=== PATIENT | female | born 1990 | race Caucasian/White ===

== ENCOUNTER 2021-12-25 12:24 | Inpatient (IN) ==
[2021-12-25] MEDS ORDERED: SODIUM CHLORIDE 0.9% 1000ML 1,000 ML IV ONE (12:32)
[2021-12-25] MEDS ORDERED: LORazepam 2 MG/1 ML VIAL IV STA (12:32)
[2021-12-25] MEDS ORDERED: levETIRAcetam 1,500 MG in 0.9 % SODIUM CHLORIDE 100 ML IV STA (12:36)
--- NOTE | 2021-12-25 12:39 | Emergency Department Note ---
Impression & Plan Seizure, Depression ED Provider Note NAME: ALEXIS VARGAS AGE: 31 SEX: F : 1990 ARRIVES VIA: Ambulance INFORMANT: Patient, EMS ED PROVIDER(S): Mike Palomino DO CHIEF COMPLAINT: seizure activity HPI: Patient is a 31-year-old female that presents the ER for possible seizure. She has been admitted since earlier this month for suicidal ideations to the [facility]. Today she had 130 to 60-second seizure at the [facility] and then another which was about 20 seconds per EMS. They note no change in heart rate per EMS. History is limited secondary to mentation. There is no report of any seizure activity previously. History is limited secondary to mentation. ROS: History was limited secondary to mentation PAST MEDICAL HISTORY:See Below PAST SURGICAL HISTORY:See Below FAMILY HISTORY:See Below SOCIAL HISTORY:See Below HOME MEDICATIONS:See Below ALLERGIES:See Below VITALS:See Below PHYSICAL EXAMINATION: GENERAL: Lying in bed, disheveled, staring off EYE EXAM: normal conjunctiva. PERRL and EOM's intact. OROPHARYNX: no exudate, no erythema, lips, buccal mucosa, and tongue normal and mucous membranes are moist NECK: supple, no nuchal rigidity, no adenopathy, non-tender LUNGS: Clear to auscultation. Normal chest wall mechanics HEART: no murmurs, S1 normal and S2 normal ABDOMEN: abdomen soft, non-tender, normo-active bowel sounds, no masses, no rebound or guarding. SKIN: no rashes and no bruising UPPER EXTREMITIES: upper extremities are grossly normal. LOWER EXTREMITIES: No pitting edema. NEURO EXAM: Awake staring off not following commands MEDICAL DECISION MAKING: Patient is a 31-year-old female who presents ER for 2 seizures prior to arrival. IV was established blood was obtained. Labs show no significant leukocytosis or anemia. BMP with LFTs bilirubin and lipase was unremarkable. Troponin was negative. UA was contaminated. Covid was negative. was negative. CT head was negative. Chest x-ray unremarkable. She had a brief seizure when I walked into the room. She did have hurt her eyes when this occurred but it was tonic-clonic. She did not bite her tongue. There is no loss of bowel or bladder. Uncertain if this is a true seizure or not. Remaining seizure that did occur in the ER lasted for about 20 seconds and I was unable to witness this. She was given Ativan and Keppra and treated as if these were true seizures. Patient and mom were updated bedside. She returned back to baseline and notes that she is feeling better but is confused why she is here. Discussed with the hospitalist for further evaluation. Patient was given 2 mg of Ativan while here as well as a 1.5 g of Keppra for 2 separate seizures. Triage Nursing notes reviewed. Limited review of prior medical records performed Vital Signs: reviewed and remarkable for no significant abnormalities Differential diagnosis: Differential diagnosis includes etiologies such as infection, hypoglycemia, electrolyte abnormalities, cardiac sources, intracerebral event, trauma, toxicologic, neurologic, as well as others were entertained. ER treatment provided: See below Diagnostics interpreted by me: ECG: Sinus rhythm rate 83 Normal axis No PVCs QTC 465 Cardiac Monitoring: An order was placed for continuous cardiac monitoring. The monitor shows a rate of 70 with sinus rhythm. Laboratory studies: As stated above and show below. Imaging studies: Portable AP upright 1 view of the chest was unremarkable CT head was negative Consultation(s): none Critical Care: None Past Med/Surg History Social History Smoking Status: Current every day smoker Tobacco Type: Cigarettes Feels Safe at Home: Yes Allergies Allergies Allergy/AdvReac Type Severity Reaction Status Date / Time No Known Allergies Allergy Unverified 12/25/21 13:59 Home Meds Home Medications Medication Instructions Recorded Confirmed acetaminophen 325 mg capsule 975 mg PO Q6H PRN 12/25/21 12/25/21 aluminum-magnesium hydroxide 200 30 ml PO Q4H PRN 12/25/21 12/25/21 mg-200 mg/5 mL oral suspension (MAG-AL) lorazepam 2 mg/mL injection 2 mg SUBLINGUAL UD PRN 12/25/21 12/25/21 solution magnesium hydroxide 2,400 mg/10 mL 30 ml PO UD PRN 12/25/21 12/25/21 oral suspension (Milk Of Magnesia Concentrated) melatonin 3 mg tablet 9 mg PO HS PRN 12/25/21 12/25/21 Results & Data (ED) Vital Signs Vital Signs - 24 hr 12/25/21 12:32 12/25/21 15:00 Temperature 37.3 C Temperature Source Oral Pulse Rate 104 H 71 Pulse Rate [Apical] 104 H Pulse Rate from SpO2 Sensor 67 Respiratory Rate 28 H 19 Respiratory Depth Normal Blood Pressure 124/76 106/59 L Blood Pressure [Right Arm] 124/76 Blood Pressure Mean 92 74 Blood Pressure Mean [Right Arm] 92 Pulse Oximetry 100 98 Oxygen Delivery Method Room Air Sepsis Recent Fever Within 48 Hours No Sepsis New/Unexplained Change in Mental Status N/A Sepsis Action Taken by Nursing No Action Required Laboratory Data Result diagrams: 12/25/21 12:31 12/25/21 12:31 Lab Results 12/25/21 12/25/21 12/25/21 Range/Units 12:31 12:31 12:31 WBC 8.48 (4.8-10.8) K/uL RBC 3.88 L (4.2-5.4) M/uL Hgb 12.0 (12.0-16.0) g/dL Hct 37.3 (37-47) % MCV 96.1 (80-100) fL MCH 30.9 (25-34) pg MCHC 32.2 (32-36) g/dL RDW Std Deviation 44.2 (36.4-46.3) fL RDW Coeff of Georges 12.6 (11.5-14.5) % Plt Count 263 (130-400) K/uL MPV 9.3 (7.4-10.4) fL Immature Gran % (Auto) 0.2 % Neut % (Auto) 63.8 % Lymph % (Auto) 27.5 % [place] % (Auto) 6.4 % Eos % (Auto) 1.5 % Baso % (Auto) 0.6 % Neut # (Auto) 5.41 (1.4-6.5) K/uL Lymph # (Auto) 2.33 (1.2-3.4) K/uL [place] # (Auto) 0.54 (0.11-0.59) K/uL Eos # (Auto) 0.13 (0-0.5) K/uL Baso # (Auto) 0.05 (0-0.2) K/uL Immature Gran # (Auto) 0.02 (0.00-0.02) K/uL Sodium 138 (136-145) mmol/L Potassium 4.8 (3.5-5.1) mmol/L Chloride 102 (98-107) mmol/L Carbon Dioxide 24 (21-32) mmol/L Anion Gap 12 H (3-11) BUN 17 (6-23) mg/dl Creatinine 0.77 (0.6-1.2) mg/dl Est Cr Clr Drug Dosing Not Reportable Est GFR ( Amer) 120.1 ml/min Est GFR (Non-Af Amer) 103.6 ml/min BUN/Creatinine Ratio 22.1 H (10-20) Glucose 79 (70-99(Fasting)) mg/dl Calcium 9.2 (8.5-10.1) mg/dl Total Bilirubin 0.4 (0.2-1.0) mg/dl AST 25 (13-39) U/L ALT 18 (7-52) U/L Alkaline Phosphatase 53 (34-104) U/L Troponin I < 0.03 (0-0.04) ng/ml Total Protein 6.8 (6.0-8.3) gm/dl Albumin 4.4 (3.4-5.0) gm/dl Globulin 2.4 L (2.5-4.0) gm/dl Albumin/Globulin Ratio 1.8 (0.9-2) Lipase 21 (11-82) U/L Prolactin 13.13 ng/ml Urine Color Urine Appearance (Clear) Urine pH (4.5-7.5) Ur Specific [place] (1.000-1.030) Urine Protein (Negative) Urine Glucose (UA) (Negative) Urine Ketones (Negative) Urine Blood (Negative) Urine Nitrite (Negative) Urine Bilirubin (Negative) Urine Urobilinogen (Negative) Ur Leukocyte Esterase (Negative) Urine WBC (Auto) (0-5) /hpf Urine RBC (Auto) (0-4) /hpf U Hyaline Cast (Auto) (0-5) /lpf U Epithel Cells (Auto) (0-5) /lpf Urine Bacteria (Auto) (Negative) POC Ur Test (NEG) SARS-CoV-2, RNA, NAAT (NEGATIVE) 12/25/21 12/25/21 12/25/21 Range/Units 13:33 14:34 14:57 WBC (4.8-10.8) K/uL RBC (4.2-5.4) M/uL Hgb (12.0-16.0) g/dL Hct (37-47) % MCV (80-100) fL MCH (25-34) pg MCHC (32-36) g/dL RDW Std Deviation (36.4-46.3) fL RDW Coeff of Georges (11.5-14.5) % Plt Count (130-400) K/uL MPV (7.4-10.4) fL Immature Gran % (Auto) % Neut % (Auto) % Lymph % (Auto) % [place] % (Auto) % Eos % (Auto) % Baso % (Auto) % Neut # (Auto) (1.4-6.5) K/uL Lymph # (Auto) (1.2-3.4) K/uL [place] # (Auto) (0.11-0.59) K/uL Eos # (Auto) (0-0.5) K/uL Baso # (Auto) (0-0.2) K/uL Immature Gran # (Auto) (0.00-0.02) K/uL Sodium (136-145) mmol/L Potassium (3.5-5.1) mmol/L Chloride (98-107) mmol/L Carbon Dioxide (21-32) mmol/L Anion Gap (3-11) BUN (6-23) mg/dl Creatinine (0.6-1.2) mg/dl Est Cr Clr Drug Dosing Est GFR ( Amer) ml/min Est GFR (Non-Af Amer) ml/min BUN/Creatinine Ratio (10-20) Glucose (70-99(Fasting)) mg/dl Calcium (8.5-10.1) mg/dl Total Bilirubin (0.2-1.0) mg/dl AST (13-39) U/L ALT (7-52) U/L Alkaline Phosphatase (34-104) U/L Troponin I (0-0.04) ng/ml Total Protein (6.0-8.3) gm/dl Albumin (3.4-5.0) gm/dl Globulin (2.5-4.0) gm/dl Albumin/Globulin Ratio (0.9-2) Lipase (11-82) U/L Prolactin ng/ml Urine Color Yellow Urine Appearance Clear (Clear) Urine pH 7.5 (4.5-7.5) Ur Specific [place] 1.015 (1.000-1.030) Urine Protein Negative (Negative) Urine Glucose (UA) Negative (Negative) Urine Ketones Negative (Negative) Urine Blood Negative (Negative) Urine Nitrite Negative (Negative) Urine Bilirubin Negative (Negative) Urine Urobilinogen Negative (Negative) Ur Leukocyte Esterase Trace H (Negative) Urine WBC (Auto) 5-10 H (0-5) /hpf Urine RBC (Auto) 0-4 (0-4) /hpf U Hyaline Cast (Auto) 0 (0-5) /lpf U Epithel Cells (Auto) >30 H (0-5) /lpf Urine Bacteria (Auto) 1+ H (Negative) POC Ur Test NEG (NEG) SARS-CoV-2, RNA, NAAT NEGATIVE (NEGATIVE) Administered Medications Discontinued Medications Sodium Chloride (Nss 1000ml) 1,000 mls @ 999 mls/hr IV .Q1H1M ONE Stop: 12/25/21 13:32 Last Infusion: 12/25/21 13:38 Dose: 0 mls/hr Documented by: [id number] Admin: 12/25/21 12:44 Dose: 999 mls/hr Documented by: [id number] Levetiracetam 1,500 mg/ Sodium (Chloride) 115 mls @ 440 mls/hr IV NOW STA Stop: 12/25/21 12:50 Last Infusion: 12/25/21 13:38 Dose: 0 mls/hr Documented by: [id number] Admin: 12/25/21 13:13 Dose: 440 mls/hr Documented by: [id number] Lorazepam (Lorazepam 2 Mg/1 Ml Vial) 2 mg IV NOW STA Stop: 12/25/21 12:33 Last Admin: 12/25/21 12:44 Dose: 2 mg Documented by: [id number] Imaging Data Radiologist's Impression: Head CT 12/25/21 12:32 CT head/brain wo con CLINICAL HISTORY: 31 years-old Female with seizure. Acute seizure like activity TECHNIQUE: Multiple axial CT images of the head were obtained without contrast. A dose lowering technique was utilized adhering to the principles of ALARA. CT DOSE: 537.48 mGy.cm COMPARISON: None. FINDINGS: No acute intracranial hemorrhage, midline shift, intracranial mass, hydrocephalus, territorial ischemia or abnormal extra-axial collection. Streak artifact from the patient's left-sided earring limits the study. The calvarium is intact. The paranasal sinuses, mastoid air cells, and middle ear cavities are clear. IMPRESSION: No acute intracranial abnormality. ACT 112: Negative or not required by law. The above report was generated using voice recognition software. It may contain grammatical, syntax or spelling errors. Electronically signed by: Jose Olivo M.D. 12/25/2021 3:02 PM Chest X-Ray 12/25/21 12:33 XR chest 1V portable HISTORY: 31 years-old Female ams . Acutely altered bowel status COMPARISON: None TECHNIQUE: AP view of the chest FINDINGS: There are 10 subcentimeter round radiodense foci projecting over the mid to left upper chest which are reportedly secondary to body jewelry. Surgical suture material projects over the lung apices. The cardiomediastinal and hilar silhouettes are within normal limits. No pneumothorax, pleural effusion, airspace consolidation or overt pulmonary edema. Bones of the chest appear grossly intact. IMPRESSION: No acute process. ACT 112: Negative or not required by law. The above report was generated using voice recognition software. It may contain grammatical, syntax or spelling errors. Electronically signed by: Jose Olivo M.D. 12/25/2021 1:16 PM Discharge Plan Visit Data Chief Complaint: Seizure ED Provider: Mike Palomino Discharge Problem: Seizure, Depression Patient Disposition: Admitted As Inpatient Discharge Instructions Interventions: ED Discharge Assessment Last Done: 12/25/21 17:36
[2021-12-25 12:56] LABS: Basophils # (auto) 0.05 K/uL (0-0.2); Basophils % (auto) 0.6 %; Eosinophils # (auto) 0.13 K/uL (0-0.5); Eosinophils % (auto) 1.5 %; Hematocrit (blood only) 37.3 % (37-47); Immature Granulocytes # (auto) 0.02 K/uL (0.00-0.02); Immature Granulocytes % (auto) 0.2 %; Lymphocytes # (auto) 2.33 K/uL (1.2-3.4); Lymphocytes % (auto) 27.5 %; Mean Corpuscular Hemoglobin 30.9 pg (25-34); Mean Corpuscular Hgb Conc 32.2 g/dL (32-36); Mean Corpuscular Volume 96.1 fL (80-100); Mean Platelet Volume 9.3 fL (7.4-10.4); Monocytes # (auto) 0.54 K/uL (0.11-0.59); Monocytes % (auto) 6.4 %; Neutrophils # (auto) 5.41 K/uL (1.4-6.5); Neutrophils % (auto) 63.8 %; Platelet Count 263 K/uL (130-400); RDW Coefficient of Variation 12.6 % (11.5-14.5); RDW Standard Deviation 44.2 fL (36.4-46.3); Red Blood Count 3.88 M/uL (4.2-5.4); White Blood Count 8.48 K/uL (4.8-10.8)
[2021-12-25 13:09] LABS: Alanine Aminotransferase 18 U/L (7-52); Albumin Globulin Ratio 1.8 (0.9-2); Albumin Level 4.4 gm/dl (3.4-5.0); Alkaline Phosphatase 53 U/L (34-104); Anion Gap 12 (3-11); Aspartate Aminotransferase 25 U/L (13-39); BUN Creatinine Ratio 22.1 (10-20); Bilirubin,Total 0.4 mg/dl (0.2-1.0); Blood Urea Nitrogen 17 mg/dl (6-23); Calcium 9.2 mg/dl (8.5-10.1); Carbon Dioxide 24 mmol/L (21-32); Chloride 102 mmol/L (98-107); Est GFR (African American) 120.1 ml/min; Est GFR (Non-African American) 103.6 ml/min; Globulin 2.4 gm/dl (2.5-4.0); Glucose 79 mg/dl (70-99(Fasting)); Lipase 21 U/L (11-82); Potassium 4.8 mmol/L (3.5-5.1); Sodium 138 mmol/L (136-145); Total Protein 6.8 gm/dl (6.0-8.3)
[2021-12-25 13:11] LABS: Troponin I < 0.03 ng/ml (0-0.04)
--- NOTE | 2021-12-25 13:18 | XRay Report ---
XR chest 1V portable HISTORY: 31 years-old Female ams . Acutely altered bowel status COMPARISON: None TECHNIQUE: AP view of the chest FINDINGS: There are 10 subcentimeter round radiodense foci projecting over the mid to left upper chest which ar e reportedly secondary to body jewelry. Surgical suture material projects over the lung apices. The c ardiomediastinal and hilar silhouettes are within normal limits. No pneumothorax, pleural effusion, a irspace consolidation or overt pulmonary edema. Bones of the chest appear grossly intact. IMPRESSION: No acute process. ACT 112: Negative or not required by law. The above report was generated using voice recognition software. It may contain grammatical, syntax o r spelling errors. Electronically signed by: Jose Olivo M.D. 12/25/2021 1:16 PM
--- NOTE | 2021-12-25 14:59 | Electrocardiogram Report ---
Test Reason : Blood Pressure : / mmHG Vent. Rate : 083 BPM Atrial Rate : 083 BPM P-R Int : 134 ms QRS Dur : 098 ms QT Int : 396 ms P-R-T Axes : 050 072 041 degrees QTc Int : 465 ms Normal sinus rhythm Low voltage QRS Incomplete right bundle branch block Borderline ECG No previous ECGs available Confirmed by Jose Garsia ([id number]) on 12/25/2021 2:58:32 PM Referred By: Confirmed By:Jose Garsia
--- NOTE | 2021-12-25 15:04 | CT Scan Report ---
CT head/brain wo con CLINICAL HISTORY: 31 years-old Female with seizure. Acute seizure like activity TECHNIQUE: Multiple axial CT images of the head were obtained without contrast. A dose lowering tech nique was utilized adhering to the principles of ALARA. CT DOSE: 537.48 mGy.cm COMPARISON: None. FINDINGS: No acute intracranial hemorrhage, midline shift, intracranial mass, hydrocephalus, territorial ischem ia or abnormal extra-axial collection. Streak artifact from the patient's left-sided earring limits t he study. The calvarium is intact. The paranasal sinuses, mastoid air cells, and middle ear cavities are clear . IMPRESSION: No acute intracranial abnormality. ACT 112: Negative or not required by law. The above report was generated using voice recognition software. It may contain grammatical, syntax o r spelling errors. Electronically signed by: Jose Olivo M.D. 12/25/2021 3:02 PM
[2021-12-25 15:12] LABS: Appearance Urine Clear (Clear); Bacteria Urine Automated 1+ (Negative); Bilirubin Urine Negative (Negative); Blood Urine Negative (Negative); Cast Urine Automated 0 /lpf (0-5); Color Urine Yellow; Epithelial Cell Urine Auto >30 /lpf (0-5); Glucose Urine UA Negative (Negative); Ketones Urine Negative (Negative); Leukocyte Esterase Urine Trace (Negative); Nitrite Urine Negative (Negative); Protein Urine Negative (Negative); RBC Urine Automated 0-4 /hpf (0-4); Specific Gravity Urine 1.015 (1.000-1.030); Urobilinogen Urine Negative (Negative); pH Urine 7.5 (4.5-7.5)
--- NOTE | 2021-12-25 15:19 | History & Physical Report ---
Date of Service December 25, 2021 Assessment & Plan (1) Seizure: Plan: Differential seizure versus pseudoseizure. Prolactin is drawn in the ER. Patient be be continued on Keppra at this time. We will get a neurology consult and EEG for the morning. Certainly significant emotional stressors could account for this. Reportedly for the patient's depression and suicide gesture she is currently on gabapentin 600 4 times daily and clonazepam 1 mg twice daily therefore breaking through with these 2 antiepileptic drugs would make it seem less likely. Neurology consultation (2) Depression: Plan: As mentioned above the patient has suicidal ideation but no suicidal gestures she is at the [facility] [place] on a 201 she will be on suicide precautions and a one-on-one while here she will be continued on her gabapentin but converted from 600 4 times daily to 800 3 times daily we will continue her clonazepam 1 twice a day we will give her an additional dose of Librium here in the emergency department x1 will have as needed Ativan for both breakthrough anxiety and breakthrough seizures. (3) Contusion of wrist, right: Plan: Patient is contusion of the right wrist she can approximate her hand she has good sensation there is an x-ray from the [facility] [place] without evidence of fractures. (4) DVT prophylaxis: Plan: DVT preventions early ambulation History of Present Illness Primary Care Provider: Psychiatrkimberlee Rubio 31-year-old female who presents from the [facility] [place] where she is therefore a suicide gesture who presents with concern for generalized seizure. Reportedly the patient had emotional escalation at the [facility] [place] when one of her friends had left. She reportedly had an episode of seizure-like activity there, an episode of seizure-like activity in EMS on route here. She had additional episode of generalized tonic-clonic movements here all which only lasted 30 seconds each or so. Mother is at the bedside reportedly has no history of seizure disorder. In the emergency department she was given lorazepam 2 and 1500 mg of Keppra. Urine tox is pending urine analysis is pending chest x-ray head CT and EKG are unremarkable Reportedly the patient is on gabapentin 600 4 times daily and clonazepam 1 mg twice daily while at the [facility] [place]. She is here for suicidal ideation but she did not have a suicidal gesture and she is here voluntarily on 201. Reportedly she had a bad day 1 day prior where increased panic attacks were occurring she had poor sleep overnight and then had an increasingly escalating emotional episode which led in lend itself to her having this event. She cannot recall the events she did not have any bruises with exception of a contusion to her forehead she not lose continence does state that her arms and legs feel weak from exertion Allergies Allergy/AdvReac Type Severity Reaction Status Date / Time No Known Allergies Allergy Unverified 12/25/21 13:59 Home Medications Medication Instructions Recorded Confirmed Type acetaminophen 325 mg capsule 975 mg PO Q6H PRN 12/25/21 12/25/21 History aluminum-magnesium hydroxide 200 30 ml PO Q4H PRN 12/25/21 12/25/21 History mg-200 mg/5 mL oral suspension (MAG-AL) lorazepam 2 mg/mL injection 2 mg SUBLINGUAL UD PRN 12/25/21 12/25/21 History solution magnesium hydroxide 2,400 mg/10 mL 30 ml PO UD PRN 12/25/21 12/25/21 History oral suspension (Milk Of Magnesia Concentrated) melatonin 3 mg tablet 9 mg PO HS PRN 12/25/21 12/25/21 History Past Med/Surg History Social History Smoking Status: Current every day smoker Tobacco Type: Cigarettes Feels Safe at Home: Yes Review of Systems Review of Systems: Mild distress and fatigue no headache, no visual changes no speech or swallowing issues no chest pain, pressure or palpitations no shortness of breath, cough or wheezes no abdominal pain, nausea or vomiting, diarrhea or constipation no dysuria, hematuria or frequency no focal joint pain or swelling no back pain, CVA tenderness or radicular pain Small contusion on the right forehead she also has contusion to her right arm she is old as there is a negative x-ray as an outpatient no focal signs of weakness or numbness or altered sensation Planes of anxiety and demonstrating tremulousness Physical Exam Physical Exam: The patient appeared well nourished and normally developed. Vital signs as documented. Head exam contusion on right forehead contusion to right arm arm was x-rayed Neck is without JVD, thyromegaly, or carotid bruits. Lungs are clear to auscultation, no focal loss of breath sounds Cardiac exam, Rhythm is regular.. No murmurs, rubs or gallops. Abdominal exam reveals normal bowel sounds, soft non tender, no masses Extremities are nonedematous and both pedal pulses are present Neurologic exam is alert and oriented, no focal loss of strength or sensation Skin is with bruises as mentioned Psychologically is with a transfer anxiety depression and suicidal ideation Results & Data Results & Data ([facility]) Vital Signs (Past 12 Hours) Vital Signs Temp Pulse Pulse Resp BP BP Pulse Ox 12/25/21 12:32 99.1 F 104 H 104 H 28 H 124/76 124/76 [address] 12/25/21 12:32 CT head/brain wo con CLINICAL HISTORY: 31 years-old Female with seizure. Acute seizure like activity TECHNIQUE: Multiple axial CT images of the head were obtained without contrast. A dose lowering technique was utilized adhering to the principles of ALARA. CT DOSE: 537.48 mGy.cm COMPARISON: None. FINDINGS: No acute intracranial hemorrhage, midline shift, intracranial mass, hydrocephalus, territorial ischemia or abnormal extra-axial collection. Streak artifact from the patient's left-sided earring limits the study. The calvarium is intact. The paranasal sinuses, mastoid air cells, and middle ear cavities are clear. IMPRESSION: No acute intracranial abnormality. ACT 112: Negative or not required by law. The above report was generated using voice recognition software. It may contain grammatical, syntax or spelling errors. Electronically signed by: Jose Olivo M.D. 12/25/2021 3:02 PM Chest X-Ray 12/25/21 12:33 XR chest 1V portable HISTORY: 31 years-old Female ams . Acutely altered bowel status COMPARISON: None TECHNIQUE: AP view of the chest FINDINGS: There are 10 subcentimeter round radiodense foci projecting over the mid to left upper chest which are reportedly secondary to body jewelry. Surgical suture material projects over the lung apices. The cardiomediastinal and hilar silhouettes are within normal limits. No pneumothorax, pleural effusion, airspace consolidation or overt pulmonary edema. Bones of the chest appear grossly intact. IMPRESSION: No acute process. ACT 112: Negative or not required by law. The above report was generated using voice recognition software. It may contain grammatical, syntax or spelling errors. Electronically signed by: Jose Olivo M.D. 12/25/2021 1:16 PM ECG Additional Comments: EKG shows normal sinus rhythm without acute ST or T wave changes PG Care Time/CCT Total # of Minutes Spent Total Time Spent with Patient: Total time spent is greater than 50% in coordination of care (as documented) at patient's floor/unit and/or counseling patient: Coding Level of Care Code 73937 Initial Inpt Care Lvl 3 Diagnoses Seizure R56.9 Depression F32.A DVT prophylaxis Z29.9 Contusion of wrist, right S60.211A
[2021-12-25] MEDS ORDERED: ONDANSETRON INJ 2 MG/ML 2 ML VIAL IV PRN (18:57)
[2021-12-25] MEDS ORDERED: ACETAMINOPHEN 325 MG TAB PO PRN (18:57)
[2021-12-25] MEDS ORDERED: MELATONIN 3 MG TAB PO PRN (18:57)
[2021-12-25] MEDS ORDERED: ALUMINUM/MAGNESIUM SUSP 30 ML UDC PO PRN (18:57)
[2021-12-25] MEDS ORDERED: chlordiazePOXIDE HCl 25 MG CAP PO ONE ×2 (18:57→22:30)
[2021-12-25] MEDS: LORazepam 2 MG/1 ML VIAL IV PRN (19:37)
[2021-12-25] MEDS: clonazePAM 1 MG TAB PO SCH (22:27)
[2021-12-25] MEDS: GABAPENTIN 800 MG TAB PO SCH (22:27)
[2021-12-25 22:30] LABS: Amphetamines+Metham, Urine Neg (Neg); Barbiturates, Urine Neg (Neg); Benzodiazepine, Urine Neg (Neg); Cocaine, Urine Neg (Neg); MDMA (Ecstacy), Urine Neg (Neg); Methadone, Urine Neg (Neg); Opiate, Urine Neg (Neg); Phencyclidine, Urine Neg (Neg)
[2021-12-26] MEDS: LORazepam 2 MG/1 ML VIAL IV PRN ×5 (05:00→21:35)
[2021-12-26 06:26] LABS: Hematocrit (blood only) 35.9 % (37-47); Mean Corpuscular Hemoglobin 30.8 pg (25-34); Mean Corpuscular Hgb Conc 33.4 g/dL (32-36); Mean Corpuscular Volume 92.1 fL (80-100); Mean Platelet Volume 8.9 fL (7.4-10.4); Platelet Count 247 K/uL (130-400); RDW Coefficient of Variation 12.5 % (11.5-14.5); RDW Standard Deviation 42.1 fL (36.4-46.3); White Blood Count 8.78 K/uL (4.8-10.8)
[2021-12-26 07:01] LABS: Anion Gap 6 (3-11); BUN Creatinine Ratio 26.1 (10-20); Blood Urea Nitrogen 12 mg/dl (6-23); Calcium 8.6 mg/dl (8.5-10.1); Carbon Dioxide 26 mmol/L (21-32); Chloride 105 mmol/L (98-107); Creatine Kinase 254 U/L (26-192); Creatinine Clr Calc Pharmacy 165.4 ml/min; Est GFR (African American) > 150.0 ml/min; Est GFR (Non-African American) 133.5 ml/min; Glucose 84 mg/dl (70-99(Fasting)); Potassium 3.8 mmol/L (3.5-5.1); Sodium 137 mmol/L (136-145)
--- NOTE | 2021-12-26 08:55 | Electroencephalogram ---
EEG Procedure Note Date of Service December 26, 2021 Start / End Times Start Time: 817 End Time: [address] Agosto History 31 oral with history of seizure-like activity Home Medication List Medication Instructions Recorded Confirmed Type acetaminophen 325 mg capsule 975 mg PO Q6H PRN 12/25/21 12/25/21 History aluminum-magnesium hydroxide 200 30 ml PO Q4H PRN 12/25/21 12/25/21 History mg-200 mg/5 mL oral suspension (MAG-AL) lorazepam 2 mg/mL injection 2 mg SUBLINGUAL UD PRN 12/25/21 12/25/21 History solution magnesium hydroxide 2,400 mg/10 mL 30 ml PO UD PRN 12/25/21 12/25/21 History oral suspension (Milk Of Magnesia Concentrated) melatonin 3 mg tablet 9 mg PO HS PRN 12/25/21 12/25/21 History Inpatient Medication List Clonazepam (Clonazepam 1 Mg Tab) 1 mg PO BID ALICIA Stop: 01/24/22 20:59 Last Admin: 12/25/21 22:27 Dose: 1 mg Documented by: [id number] Gabapentin (Gabapentin 800 Mg Tab) 800 mg PO TID ALICIA Stop: 01/24/22 20:59 Last Admin: 12/25/21 22:27 Dose: 800 mg Documented by: [id number] Lorazepam (Lorazepam 2 Mg/1 Ml Vial) 1 mg IV Q6H PRN PRN Reason: Agitation Stop: 01/24/22 18:56 Last Admin: 12/26/21 05:00 Dose: 1 mg Documented by: [id number] Lorazepam (Lorazepam 2 Mg/1 Ml Vial) 2 mg IV Q2H PRN PRN Reason: seizure Stop: 01/24/22 18:56 Last Admin: 12/25/21 19:37 Dose: 2 mg Documented by: [id number] Discontinued Medications Chlordiazepoxide HCl (Chlordiazepoxide Hcl 25 Mg Cap) 25 mg PO NOW ONE Stop: 12/25/21 22:31 Last Admin: 12/25/21 22:27 Dose: 25 mg Documented by: [id number] Sodium Chloride (Nss 1000ml) 1,000 mls @ 999 mls/hr IV .Q1H1M ONE Stop: 12/25/21 13:32 Last Infusion: 12/25/21 13:38 Dose: 0 mls/hr Documented by: [id number] Admin: 12/25/21 12:44 Dose: 999 mls/hr Documented by: [id number] Levetiracetam 1,500 mg/ Sodium (Chloride) 115 mls @ 440 mls/hr IV NOW STA Stop: 12/25/21 12:50 Last Infusion: 12/25/21 13:38 Dose: 0 mls/hr Documented by: [id number] Admin: 12/25/21 13:13 Dose: 440 mls/hr Documented by: [id number] Lorazepam (Lorazepam 2 Mg/1 Ml Vial) 2 mg IV NOW STA Stop: 12/25/21 12:33 Last Admin: 12/25/21 12:44 Dose: 2 mg Documented by: [id number] Description This is a 21 electrode EEG with a single channel dedicated to limited EKG. The electrodes were placed in accordance with the International 10-20 system. Interpretation The predominant background activity consists of a very well modulated 11 Hz activity, of up to 30 mV in amplitude,seen symmetrically distributed over the posterior head regions bilaterally. This activity attenuates nicely with eye- opening and other alerting procedures. Photic stimulation was performed and elicited no change in the background activity and no abnormal responses were seen. Hyperventilation was not performed. A minimal amount of muscle and movement artifact activity contaminated the rec ording and did not hinder interpretation to any significant degree. Throughout the waking portion of the recording, no focal abnormalities, abnormal slow activity, or potentially epileptogenic discharges are seen. The patient entered the drowsy state with no further activation. In summary, this EEG was normal during wakefulness and drowsiness. No focal abnormalities, potentially epileptogenic discharges, or abnormal slow activity was seen. Clinical Correlation The abscence of potentially epileptogenic activity does not exclude a seizure disorder, since interictally, EEGs can be normal. Clinical correlation is required. [facility] EEG Procedure Codes Indication for Procedure (1) Seizure-like activity: Neurology Neurology: 12186 EEG include record awake & drowsy
[2021-12-26] MEDS: clonazePAM 1 MG TAB PO SCH ×2 (09:09→20:25)
[2021-12-26] MEDS: GABAPENTIN 800 MG TAB PO SCH ×3 (09:09→20:25)
--- NOTE | 2021-12-26 10:44 | Neurology Consultation ---
Date of Consultation December 26, 2021 Assessment & Plan (1) Seizure-like activity: (2) Bipolar disorder with depression: (3) Panic disorder: this patient has a longstanding history of bipolar disorder and other issues as described above ( including panic disorder and depression ). She had the recent onset of seizure-like activity yesterday and has had several episodes yesterday, last evening, and this morning. Overall, I am strongly suspecting pseudoseizures but I cannot completely exclude real Generalized tonic-clonic seizures. EEG, in between spells, was unremarkable including no postictal or other slowing. Neurologic examination is normal with no focal neurologic signs, meningeal signs, or encephalopathy. I spoke to Dr. Cruz regarding her case and her psychiatric conditions. Recommendations: 1. MRI of the brain with and without contrast. 2. Discontinue all levetiracetam. 3. continue gabapentin 800 milligrams 3 times a day and clonazepam 1 milligram twice a day. 4. Initiate lamotrigine 25 milligrams twice a day ( we will do this for 1 week then increase to 50 milligrams twice a day ). lamotrigine can help bipolar disorder as well as me an excellent anticonvulsant. If this helps her condition we can taper off the gabapentin 5. obtain magnesium, TSH, and B12. 6. we may need to send her to an epilepsy monitoring unit if we cannot prove seizures versus pseudoseizures. 7. Consider formal psychiatry consult ( so Dr. cruz can evaluate the patient). Overall, I spent a total of 75 minutes with this case including review of records, direct evaluation the patient at bedside, and discussion of the case with the patient at bedside, RN at bedside and Dr. Cruz and Dr. Lopez including differential diagnosis and treatment options. History of Present Illness Reason for Consultation: Patient is a 31-year-old, who was asked to see at the request of Dr. Agosto, for neurologic consultation regarding seizures. Requesting Physician: Dr. Agosto. Attending Physician: Alejandro Lopez MD History of Present Illness This patient has a history of bipolar type 2 disorder diagnosed in 2009 along with OCD, ADHD, agoraphobia, and panic disorder (All diagnoses told to me by the patient). Apparently she has had a number of psychiatric medications over the years. The patient herself has no recollection of a history of seizures although once in 2007 or 2008 she was dancing on staging collapsed then having seizure-like activity. Her heart rate was decreased in her glucose was decreased. It was felt that she had a cardiovascular event and she never had any other spells or medications. The patient was admitted to the [facility] recently because of depression and suicidal ideation. Apparently the patient has been recently from her spouse and moved back to the [facility] to live with her parents from [place]. Apparently she was initiated on Effexor and sertraline as well as gabapentin and clonazepam. On December 25, in the morning, she started out with a panic attack triggered by the fact that a friend/ support person was being discharged from the [facility]. This panic attack lasted at least 15 minutes and was accompanied by hyperventilating, increased heart rate, shaking of her hands, and crying. She then went into 2 or 3 episodes of generalized tonic-clonic movement lasting anywhere from 20 is 60 seconds by a minute or 2. She did not regain consciousness in between and has no recall of the events. She did not have tongue biting or urinary incontinence. She was brought to the emergency room at 12:32 on December 25 with a temperature of 37.3, pulse of 104, respiratory rate 28, blood pressure 124/76 and O2 saturation 100 percent on room air. She was described as disheveled and staring off lying in bed with no real following commands. She did not have anything focal on neurologic exam. A prolactin was 13. She was given 1.5 grams of Keppra IV. In the evening Allergies Allergy/AdvReac Type Severity Reaction Status Date / Time azithromycin Allergy Mild hives,vomit Verified 12/26/21 10:51 ing Home Medications Medication Instructions Recorded Confirmed Type Albuterol Inhaler (VENTOLIN 2 puff INHALATION QID PRN #5 02/23/14 History INHALER) inhaler Control Pills 1 tab PO DAILY #0 tab 02/23/14 History DULOXETINE HCL (CYMBALTA) 60 mg PO DAILY #0 cap 02/23/14 History NAPROXEN 1 tab PO UD PRN #0 02/23/14 History ZOLPIDEM TARTRATE (AMBIEN) 5 mg PO HS PRN #0 tab 02/23/14 History acetaminophen 325 mg capsule 975 mg PO Q6H PRN 12/25/21 12/25/21 History aluminum-magnesium hydroxide 200 30 ml PO Q4H PRN 12/25/21 12/25/21 History mg-200 mg/5 mL oral suspension (MAG-AL) lorazepam 2 mg/mL injection 2 mg SUBLINGUAL UD PRN 12/25/21 12/25/21 History solution magnesium hydroxide 2,400 mg/10 mL 30 ml PO UD PRN 12/25/21 12/25/21 History oral suspension (Milk Of Magnesia Concentrated) melatonin 3 mg tablet 9 mg PO HS PRN 12/25/21 12/25/21 History Patient History Social History Smoking Status: Current every day smoker Tobacco Type: Cigarettes Cigarettes Per Day: <5; Second Hand Exposure: No; Hx Alcohol Use: Yes Hx Substance Use: Yes Preferred Language: Maori Communication Ability: Effective Mail Delivery Supervisor Required: No Beliefs That Will Affect Care: None Current Living Situation: Family Current Living Situation Comment: Lives with parents Feels Safe at Home: Yes Assistive Devices: None Review of Systems Constitutional: + fatigue; no fever and no weakness Eyes: no diplopia, no eye pain and no worsening vision Ear, Nose, Mouth, Throat: no ear pain, no tinnitus, no hearing loss, no dizziness, no snoring, no hoarseness and no dysphagia Respiratory: no cough and no dyspnea Cardiovascular: no chest pain, no palpitations and no lightheadedness Gastrointestinal: no abdominal pain, no nausea and no vomiting Genitourinary: no dysuria, no urinary frequency and no urinary incontinence Musculoskeletal: + back pain and + neck pain; no radicular pain, no joint pain and no myalgia Integumentary: no rash and no lesions Neurologic: + confusion; no gait abnormality, no localized weakness, no generalized weakness, no tingling, no numbness, no tremor(s), no abnormal movements, no headache(s), no abnormal speech and no memory loss Psychiatric: no depression, no irritability, no anxiety, no difficulty concentrating, no confusion and no hallucinations Endocrine: no fatigue and no flushing Hematologic / Lymphatic: no easy bleeding and no easy bruising Allergy / Immunological: no urticaria and no problem reported Exam (Neuro) Physical Exam: The patient is right-handed. The patient is awake, alert, and attentive. Speech is normal without any aphasia or dysarthria. The patient can name objects, repeat phrases, and has normal spontaneous speech. Mentation and thought processes are intact, with orientation to person, place and time, and normal fund of knowledge. Attention and concentration are normal. Mood and affect are normal and appropriate. General appearance and grooming are normal. Short and long-term memory are intact. Pupils are 4 mm bilaterally and reactive to light. Extraocular eye muscles are intact without nystagmus. Visual acuity and visual beach seem normal grossly to confrontation. There are no deficits to sensation in the face in all 3 distributions of the fifth cranial nerve bilaterally. Corneal reflexes are positive bilaterally. Facial strength and symmetry was normal bilaterally. Hearing seems normal bilaterally. Palate moves well without asymmetry. There is normal sternocleidomastoid and trapezius (shoulder shrug) strength bilaterally. Tongue is midline with good strength bilaterally. Neck has a full range of motion without discomfort. There are no cervical bruits bilaterally. There are no cranial or ocular bruits. Heart is without murmur. There is a regular rhythm and rate. Cervical, thoracic, and lumbar spine are nontender to palpation. Gait was not tested but stance sitting up in bed is normal With outstretched arms there is no drift. There are no resting, postural, or action tremors. There is no ataxia with finger to nose testing. There is good facility in the hands. No other abnormal involuntary movements are noted. Motor strength is 5/5 diffusely in the arms bilaterally including deltoids, biceps, triceps, brachioradialis, wrist flexors and extensors, rental car deliverer, and intrinsic hand muscles. Motor strength is 5/5 diffusely in the legs bilaterally including hip flexors, quadriceps, hamstrings, gastrocnemius, tibialis anterior, tibialis posterior, and Peroneii muscles. Toe extensors are normal and there is good bulk in the extensor digitorum brevis muscles bilaterally. The limbs have good tone without rigidity or spasticity. There is no atrophy noted in the muscles. Muscle bulk is normal, there is no tenderness to palpation, no myotonia to percussion, and no fasciculations seen. Sensory examination is intact to touch and pin throughout all 4 limbs diffusely. Reflexes are 1/4 in the biceps, triceps, brachioradialis, quadriceps, and Achilles tendons bilaterally. There is no clonus bilaterally. Toes are downgoing with plantar stimulation bilaterally. Peripheral pulses are present and of normal quality distally in all 4 limbs. There is no peripheral edema noted in the limbs. Results & Data ([facility]) Vital Signs (Past 12 Hours) Vital Signs Temp Pulse Pulse Resp BP Pulse Ox 12/26/21 06:59 36.5 C 70 17 105/65 97 12/26/21 02:58 36.7 C 62 16 95/58 L 97 12/26/21 01:58 69 PG Care Time/CCT Total # of Minutes Spent Total Time Spent with Patient: Total time spent is greater than 50% in coordination of care (as documented) at patient's floor/unit and/or counseling patient: Coding Level of Care Code 16725 Inpt Consult Level 5 Diagnoses Seizure-like activity R56.9 Bipolar disorder with depression F31.9 Panic disorder F41.0 Time Spent (min) 75
--- NOTE | 2021-12-26 15:36 | Magnetic Resonance Report ---
MR brain seizure wo con HISTORY: 31 years-old Female seizure acute seizure like activity COMPARISON: Head CT 12/25/2021 TECHNIQUE: Multiplanar multisequence MRI of the brain was obtained without the use of IV contrast uti lizing seizure protocol FINDINGS: The refinery operator crude unit localizer images demonstrate no gross extracranial abnormality. There is no restricted diff usion to suggest acute or subacute infarct. No acute intracranial hemorrhage, midline shift, abnormal extra-axial collection, hydrocephalus or intracranial mass. No pathologic blooming artifact on the T 2 star series. Subcentimeter focus of increased T2/FLAIR signal is noted within the periventricular l eft parietal lobe on image 19 series 8, likely of no clinical significance. The midline structures ap pear unremarkable. The medial temporal lobes appear normal. No acute seizure focus, tam matter heter otopia or cortical dysplasia. The cerebral venous sinuses and major arterial flow voids appear patent. Mastoid air cells are clear. Mild polypoid mucosal thickening of the right maxillary sinus. The skull, orbits and soft tissues ar e unremarkable. IMPRESSION: Unremarkable MRI of the brain. ACT 112: Negative or not required by law. The above report was generated using voice recognition software. It may contain grammatical, syntax o r spelling errors. Electronically signed by: Jose Olivo M.D. 12/26/2021 3:34 PM
--- NOTE | 2021-12-26 16:36 | Hospitalist Progress Note ---
Date of Service December 26, 2021 Assessment & Plan (1) Seizure: Plan: Possibly pseudoseizure in the setting of extensive psychiatric disorder MRI of the brain is pending EEG unremarkable Consulted with neurology appreciated We will check TSH, magnesium and B12 level Stop Keppra lamotrigine 25 milligrams twice a day (2) Depression: Plan: Has extensive psychiatric disorder, bipolar disorder, no presented with seizure- like activity Possibly pseudoseizure, neurology has been consulted, recommended psychiatry consult which is placed (3) DVT prophylaxis: Plan: Lovenox Admission and Anticipated Discharge Date Admission Date: December 25, 2021 Subjective No complaint Review of Systems Review of Systems: Mild distress and fatigue no headache, no visual changes no speech or swallowing issues no chest pain, pressure or palpitations no shortness of breath, cough or wheezes no abdominal pain, nausea or vomiting, diarrhea or constipation no dysuria, hematuria or frequency no focal joint pain or swelling no back pain, CVA tenderness or radicular pain Small contusion on the right forehead she also has contusion to her right arm she is old as there is a negative x-ray as an outpatient no focal signs of weakness or numbness or altered sensation Planes of anxiety and demonstrating tremulousness Physical Exam Physical Exam: The patient appeared well nourished and normally developed. Vital signs as documented. Head exam contusion on right forehead contusion to right arm arm was x-rayed Neck is without JVD, thyromegaly, or carotid bruits. Lungs are clear to auscultation, no focal loss of breath sounds Cardiac exam, Rhythm is regular.. No murmurs, rubs or gallops. Abdominal exam reveals normal bowel sounds, soft non tender, no masses Extremities are nonedematous and both pedal pulses are present Neurologic exam is alert and oriented, no focal loss of strength or sensation Skin is with bruises as mentioned Psychologically is with a transfer anxiety depression and suicidal ideation Results & Data Results & Data ([facility]) Vital Signs (Past 12 Hours) Vital Signs Temp Pulse Resp BP Pulse Ox 12/26/21 16:19 81 22 116/74 95 12/26/21 11:07 36.8 C 76 18 95/55 L 97 12/26/21 06:59 36.5 C 70 17 105/65 97 PG Care Time/CCT Total # of Minutes Spent Total Time Spent with Patient: Total time spent is greater than 50% in coordination of care (as documented) at patient's floor/unit and/or counseling patient: Coding Level of Care Code 58652 Subseq Hosp Care Lvl 2 Diagnoses Seizure R56.9 Depression F32.A Depression Type: unspecified DVT prophylaxis Z29.9 (1) Depression Depression Type: unspecified Qualified Code(s): F32.A - Depression, unspecified
[2021-12-26] MEDS ORDERED: FOSPHENYTOIN 1,000 MGPE in SODIUM CHLORIDE 0.9% 50 ML IV ONE (22:00)
[2021-12-26] MEDS ORDERED: Nursing to Pharmacy Communication SCH (22:00)
[2021-12-26] MEDS ORDERED: LORazepam 2 MG/1 ML VIAL IV STA (22:09)
--- NOTE | 2021-12-26 22:33 | Communication Note ---
Date of Service: December 26, 2021 S: Called to the patient's room at approximately 945 for a code purple. Upon arrival the patient was lying on her side and shaking. Brief bedside assessment and discussion with the nurses indicated the patient has been on and off having shaking-like episodes throughout the evening. This most recent one was the most severe and she had become unresponsive with it. There are no significant other abnormalities. Of note the patient's Keppra had been stopped. O: Patient lying on her side shaking intermittently foaming at the mouth unresponsive to verbal or tactile stimulation. Unresponsive to painful touch unresponsive to sternal rub. When her hand was placed above her head she did fall and hit her face. A/P: ? Seizure versus pseudoseizure: Patient has a negative EEG negative MRI however displayed significant seizure-like activity this evening. When comparing her activity yesterday evening to this evening it was definitely worse. There is no clear etiology for her seizures and they could certainly be psychogenic. Given the fact that she has been unresponsive for a great deal of time he was having seizure-like episodes and overt seizure had not been ruled out, fosphenytoin was administered. A potential explanation for current presentation could be Ambien withdrawal. Although this is typically seen with doses in the 100s of mi lligrams it is not entirely clear how much Ambien she was taking prior to presentation. Furthermore the effects of Ambien could be modified or exacerbated by concurrent use of lorazepam, clonazepam, and other medications she may have been taking. Furthermore if she has history of alcohol or benzo abuse her neurochemistry could be primed for Ambien withdrawal syndrome. I briefly reviewed some case reports online and the presentation appears similar. Will attempt to leave a copy of these on the hospitalist desk.
[2021-12-26] MEDS: lamoTRIgine 25 MG TAB PO SCH (23:29)
[2021-12-27] MEDS ORDERED: LACTATED RINGER'S 1,000 ML IV ONE (02:50)
[2021-12-27] MEDS: LORazepam 2 MG/1 ML VIAL IV PRN ×4 (06:15→21:07)
[2021-12-27 06:39] LABS: Hematocrit (blood only) 38.1 % (37-47); Hemoglobin 12.4 g/dL (12.0-16.0); Mean Corpuscular Hemoglobin 30.4 pg (25-34); Mean Corpuscular Hgb Conc 32.5 g/dL (32-36); Mean Corpuscular Volume 93.4 fL (80-100); Platelet Count 270 K/uL (130-400); RDW Coefficient of Variation 12.4 % (11.5-14.5); RDW Standard Deviation 41.9 fL (36.4-46.3); Red Blood Count 4.08 M/uL (4.2-5.4)
[2021-12-27 07:05] LABS: Est GFR (African American) 141.8 ml/min; Est GFR (Non-African American) 122.3 ml/min; Magnesium 1.8 mg/dl (1.7-2.4); Potassium 4.1 mmol/L (3.5-5.1)
--- NOTE | 2021-12-27 08:21 | Neurology Progress Note ---
Date of Service December 27, 2021 Assessment & Plan (1) Seizure-like activity: (2) Bipolar disorder with depression: (3) Panic disorder: Plan: this patient has a longstanding history of bipolar disorder and other issues as described above ( including panic disorder and depression ). Panic attacks have been essentially daily over the last 2 months. She had the recent onset of seizure-like activity December 25, having never had this type of activity before. She has had several episodes on December 25 during the day and in the evening several the morning of December 26 as well as in the afternoon and in the evening. She has had none today so far. These seizure- like generalized tonic-clonic episodes always follow the onset of a panic attack. Overall, I am strongly suspecting pseudoseizures, but I cannot completely exclude real generalized tonic-clonic seizures. EEG, in between spells, was unremarkable december 26, including no postictal or other slowing. Neurologic examination is normal with no focal neurologic signs, meningeal signs, or encephalopathy. I spoke to Dr. Cruz regarding her case and her psychiatric conditions on December 26. she is due to see the patient formally. if we can get this patient's panic attacks under control, I believe the seizure- like activity will be controlled as well Recommendations: 1. Try to limit the amount of benzodiazepines given to this patient 2. Keep off levetiracetam and phosphenytoin. 3. Continue gabapentin 800 milligrams 3 times a day. Continue clonazepam BID, with 1 milligram in the morning (7-8), and 1 milligram in the afternoon (3-4) 4. Continue lamotrigine 25 milligrams twice a day (do this for 1 week then increase to 50 milligrams twice a day ). lamotrigine can help bipolar disorder as well as me an excellent anticonvulsant. If this helps her condition we can taper off the gabapentin 5. we may need to send her to an epilepsy monitoring unit if we cannot prove seizures versus pseudoseizures. 6. Awaiting formal psychiatry consult with Dr. Cruz - Overall, I spent a total of 80 minutes with this case including review of records, review of MRI films, direct evaluation the patient at bedside, and discussion of the case with the patient at bedside, RN at bedside and , including differential diagnosis and treatment options. Admission and Anticipated Discharge Date Admission Date: December 25, 2021 Subjective Patient was doing very well yesterday afternoon, visiting with her father, when around 4 p.m. she had anxiety and went to lay down and then had couple of generalized tonic-clonic spells lasting up to 30 seconds each. The nurse witnessed these and was trying to verbally get the patient to respond and gave some painful stimuli. However, the patient did not respond to any of these had no recall of the events. She then did fairly well until about 2129 when she had 2 or 3 more spells following an anxiety attack. This time she was given 2 milligrams of and then 1 gram of fosphenytoin. She had no further spells overnight into this morning. She received 1 milligram of Ativan 0615 this morning. Currently (0800) she has no complaint of pain or headache. She is feeling sleepy but otherwise Unremarkable. Patient tells me that prior to being admitted to the [facility] she was having panic attacks almost daily for 2 months. She moved to the [facility] in July from [place] to live with her parents. She started getting panic attacks in June of 2021 and were intermittent until more recently. Atypical panic attack consists of the onset feeling anxious with a rapid heart rate, feeling of being overwhelmed, some nonspecific shakiness, and some rapid breathing. She would take clonazepam 0.5 milligrams as needed at home and these panic attacks tended to last 45-60 minutes MRI of the brain December 26 was unremarkable without contrast. I reviewed these films. Laboratory studies have been unremarkable so far. Today are blood pressure is 90/55 and overnight she was in sinus rhythm the 60s and 70s. Results & Data ([facility]) Vital Signs (Past 12 Hours) Vital Signs Temp Pulse Resp BP BP Pulse Ox 12/27/21 07:00 36.8 C 72 18 90/55 L 95 12/27/21 02:39 36.9 C 69 16 79/45 L 95 12/26/21 23:09 37 C 78 16 92/48 L 95 12/26/21 22:30 37 C 83 18 91/55 L 93 12/26/21 21:57 98 H 16 101/64 94 12/26/21 21:44 95 H 16 119/72 98 12/26/21 21:40 80 22 98 12/26/21 21:37 37.6 C H 109 H 14 127/69 97 12/26/21 20:38 37 C 72 16 103/65 99 Exam (Neuro) Physical Exam: She is awake and alert. Speech is without aphasia or dysarthria. Mood and affect seem normal appropriate. Thought processes are intact to conversation. Extraocular eye muscles are intact without nystagmus. With outstretched arm she has some variable mild tremor of the right upper extremity. I found that she is distractible at this tremor would stop. Coordination is normal in the arms and strength is symmetrical. Sitting up in bed is normal stance. PG Care Time/CCT Total # of Minutes Spent Total Time Spent with Patient: Total time spent is greater than 50% in coordination of care (as documented) at patient's floor/unit and/or counseling patient: Coding Level of Care Code 05203 Subseq Hosp Care Lvl 3 Diagnoses Seizure-like activity R56.9 Bipolar disorder with depression F31.9 Panic disorder F41.0 Time Spent (min) 80 Comment add modifiers as able
[2021-12-27] MEDS: clonazePAM 1 MG TAB PO SCH ×2 (08:58→16:49)
[2021-12-27] MEDS: GABAPENTIN 800 MG TAB PO SCH ×3 (08:59→21:08)
[2021-12-27] MEDS: lamoTRIgine 25 MG TAB PO SCH (08:59)
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
[2021-12-27] MEDS ORDERED: QUEtiapine FUMARATE 25 MG TABLET PO PRN (12:46)
[2021-12-27] MEDS ORDERED: VENLAFAXINE HCL XR 37.5 MG CAPXR PO ONE (13:45)
[2021-12-27] MEDS ORDERED: VALPROATE SOD 1,000 MG in DEXTROSE 5% 100 ML IV ONE (13:45)
[2021-12-27] MEDS: QUEtiapine FUMARATE 25 MG TABLET PO SCH (16:49)
--- NOTE | 2021-12-27 17:21 | Hospitalist Progress Note ---
Date of Service December 27, 2021 Assessment & Plan (1) Seizure-like activity: Plan: Concern for seizure versus pseudoseizure Neurology consulted. multiple episodes lasting 20 to 30 seconds to a minute. Patient had an observed episode with some semirhythmic movement of the right hand and forearm, generalized clonic movement, followed by flaccidity. No tongue biting, eyes equal and reactive to light after. Did receive 1 mg of Ativan during this. Concern for pseudoseizure versus epilepsy. Patient was on gabapentin 800 mg 3 times daily, clonazepam 1 mg twice daily 7 AM/3 PM, and Lamictal 25 mg twice daily with plan to increase to 50 grams after 1 week Continue gabapentin 800 mg p.o. 3 times daily Patient did receive fosphenytoin overnight for concern of seizure-like episode 12/26 Given observed activity above Lamictal was stopped, and patient has been loaded with Depakote continue valproic acid every 6 hours If recurrent episodes persist will need to be transferred for EMU Psychotropic medications below per psych recommendations, appreciate recs (2) Depression: Plan: Concern for seizure versus pseudoseizure as above Patient reports worsening panic, chronic trauma, and PTSD Does report episodes opening depression versus days of elevated mood/bending/insomnia consistent with bipolar 2 Psychiatry consulted, concern for complex PTSD with dissociation and somatic conversion. See consultation, appreciate care Noted that nonepileptic seizure is diagnosis of exclusion, recommend continuing medical work-up which may require transfer to EMU Previously on Remeron/Effexor pending Seroquel addition prior to admission Seroquel started, venlafaxine restarted Valproic acid as noted above Gabapentin and milligrams p.o. 3 times daily Clonazepam as noted above Discussion with psychiatry patient would like to transition to a residential trauma program although these are limited. Discussed with neurology above if episodes continue we will need to transfer to EMU, if mood and seizures well controlled with above can consider transition to trauma program versus discharge home with safety plan and outpatient referral (3) DVT prophylaxis: Plan: Lovenox (4) Complex posttraumatic stress disorder: Plan: As above (5) Bipolar disorder with depression: Plan: As above Admission and Anticipated Discharge Date Admission Date: December 25, 2021 Sabine Li seen at the bedside this morning. Reports she has a little to the tremor in her right hand, but otherwise feels at her normal baseline although a little bit anxious. She reports she did have an episode of seizure last night. Her home SNRI/SSRI was not continued, medications reviewed with psychiatry later in afternoon and will be reentered. Did have reassessment in the late morning as patient had some of the movements of her right arm and forearm with concern for generalized clonic movement thereafter but without tonic straightening. Episode lasted 30 seconds, and she received a milligram of Ativan. No tongue biting, eyes open easily and reactive to light after. Appreciate neurology recommendations as noted below. Was also seen by psychiatry, has a complex history and chronic trauma. Concern for complex PTSD with dissociation and conversion and pseudoseizures. Re commendations as noted in assessment and plan. Review of Systems Review of Systems: All systems reviewed & are unremarkable except as noted in Subjective Physical Exam Physical Exam: General: A&Ox3. NAD. Cooperative. Versus past passive SI, no active SI. TP linear. Not responding to internal stimuli. Denies AH/VH. HEENT: Atraumatic, normocephalic. Pulm: CTAB A&P. -wheezes, -rales, -rhonchi. Symmetrical chest rise. No increase in work of breathing. No respiratory distress. Cardiac: RRR, -mrg. Radial pulses intact and symmetrical. Abdominal: Nontender, nondistended, soft. BS present. Extremities: Sensation intact in hands and feet without asymmetry. Mud Mixer strength, ankle dorsiflexion/plantarflexion intact. Resting 3 to 5 Hz tremor of the right arm. Results & Data Results & Data ([facility]) Vital Signs (Past 12 Hours) Vital Signs Temp Pulse Pulse Resp BP Pulse Ox 12/27/21 16:00 90 20 109/57 L 96 12/27/21 15:16 66 12/27/21 12:13 36.6 C 91 H 18 119/61 99 12/27/21 11:34 67 12/27/21 07:00 36.8 C 72 18 90/55 L 95 PG Care Time/CCT Total # of Minutes Spent Total Time Spent with Patient: Total time spent is greater than 50% in coordination of care (as documented) at patient's floor/unit and/or counseling patient: Coding Level of Care Code 44873 Subseq Hosp Care Lvl 2 Diagnoses Depression F32.A Depression Type: unspecified DVT prophylaxis Z29.9 Seizure-like activity R56.9 Complex posttraumatic stress disorder F43.10 Bipolar disorder with depression F31.9 (1) Depression Depression Type: unspecified Qualified Code(s): F32.A - Depression, unspecified
[2021-12-27] MEDS: VALPROATE SOD 250 MG in DEXTROSE 5% 50 ML IV SCH (17:56)
[2021-12-27] MEDS: MIRTAZAPINE TAB 15 MG TAB PO SCH (21:08)
[2021-12-28] MEDS: VALPROATE SOD 250 MG in DEXTROSE 5% 50 ML IV SCH ×5 (00:14→23:33)
[2021-12-28] MEDS: LORazepam 2 MG/1 ML VIAL IV PRN ×3 (03:57→23:42)
[2021-12-28 04:05] LABS: Hematocrit (blood only) 38.3 % (37-47); Hemoglobin 12.6 g/dL (12.0-16.0); Mean Corpuscular Hemoglobin 30.7 pg (25-34); Mean Corpuscular Hgb Conc 32.9 g/dL (32-36); Mean Corpuscular Volume 93.4 fL (80-100); Mean Platelet Volume 8.9 fL (7.4-10.4); Platelet Count 268 K/uL (130-400); RDW Coefficient of Variation 12.4 % (11.5-14.5); RDW Standard Deviation 42.1 fL (36.4-46.3)
[2021-12-28 04:22] LABS: BUN Creatinine Ratio 27.9 (10-20); Calcium 8.4 mg/dl (8.5-10.1); Creatinine Clr Calc Pharmacy 112.1 ml/min; Est GFR (Non-African American) 117.4 ml/min
--- NOTE | 2021-12-28 07:49 | Neurology Progress Note ---
Date of Service December 28, 2021 Assessment & Plan (1) Seizure-like activity: (2) Bipolar disorder with depression: (3) Panic disorder: Plan: This patient has a longstanding history of bipolar disorder and other issues (including panic disorder, depression, significant PTSD, OCD, and agoraphobia). Panic attacks have been essentially daily over the last 2 months. She had the recent onset of seizure-like activity December 25, having never had this type of activity before. She has had several episodes on December 25 during the day and in the evening several the morning of December 26 as well as in the afternoon and in the evening. She had 2 prolonged episodes December 27 of multiple serial events, with 8 or 9 in a row in the morning again in the early afternoon. I witnessed 2 episodes that day and described them in the addendum of my note of December 27. They were very consistent with pseudoseizures These seizure-like generalized clonic episodes always follow the onset of a panic attack. I witnessed no tonic activity. Her eyes were closed and she had typical head rocking. Her legs were not in sync with her arms. she really has no significant postictal state following that many events. This is even including after getting Ativan. Overall, I am strongly suspecting pseudoseizures, but I cannot completely exclude real generalized seizures. EEG, in between spells, was unremarkable december 26, including no postictal or other slowing. Neurologic examination is normal with no focal neurologic signs, meningeal signs, or encephalopathy. Dr. camarena formally evaluated the patient December 27. She initiated Seroquel and venlafaxine. Patient has been loaded with valproic acid, 1 gram on December 27, and now is getting 250 milligrams every 6 hours. Recommendations: 1. Keep off levetiracetam and phosphenytoin. 2. Continue gabapentin 800 milligrams 3 times a day. Continue clonazepam BID, with 1 milligram in the morning (7-8), and 1 milligram in the afternoon (3-4) 3. Keep off lamotrigine 4. Continue valproic acid 250 milligrams IV q.6 hours for now. She could be converted to p.o. when it is felt that she is stable - 500 milligrams ER 24 hour release twice a day, and follow levels adjusting accordingly to keep her around 75 5. we may need to send her to an epilepsy monitoring unit if we cannot prove seizures versus pseudoseizures. Overall, I spent a total of 45 minutes with this case including review of records, direct evaluation the patient at bedside, and discussion of the case with the patient at bedside, RN at bedside and , including differential diagnosis and treatment options. Admission and Anticipated Discharge Date Admission Date: December 25, 2021 Subjective Patient feels better this morning. She has not had any seizures or spells since she was given Depakote IV yesterday afternoon. Nursing reports that she has been reasonable mood. Depakote level this morning was 39. CBC and Chem profile was unremarkable. Results & Data ([facility]) Vital Signs (Past 12 Hours) Vital Signs Temp Pulse Resp BP Pulse Ox 12/28/21 03:53 36.8 C 82 16 87/46 L 96 12/28/21 00:13 36.8 C 82 16 86/48 L 98 Exam (Neuro) Physical Exam: She is awake and alert. Speech is without aphasia or dysarthria. Mood seems reasonable and affect seem appropriate. She seemed tired otherwise was cooperative, friendly answered questions well. Thought processes seemed intact with good memory. Extraocular muscles are intact nystagmus. There are no abnormal involuntary movements seen. Strength was symmetric PG Care Time/CCT Total # of Minutes Spent Total Time Spent with Patient: Total time spent is greater than 50% in coordination of care (as documented) at patient's floor/unit and/or counseling patient: Coding Level of Care Code 20381 Subseq Hosp Care Lvl 3 Diagnoses Seizure-like activity R56.9 Bipolar disorder with depression F31.9 Panic disorder F41.0 Time Spent (min) 45
[2021-12-28] MEDS: QUEtiapine FUMARATE 25 MG TABLET PO SCH ×3 (08:12→16:34)
[2021-12-28] MEDS: GABAPENTIN 800 MG TAB PO SCH ×3 (08:14→20:04)
[2021-12-28] MEDS: clonazePAM 1 MG TAB PO SCH ×2 (08:16→16:34)
[2021-12-28] MEDS ORDERED: VENLAFAXINE HCL XR 75 MG CAPXR PO SCH (09:00)
--- NOTE | 2021-12-28 09:49 | Communication Note ---
Date of Service: December 28, 2021 Interim progress reviewed. Loaded with IV Depakote and restarted antidepressants yesterday with Seroquel PRN. Will put hold parameters on Seroquel until ? Klonopin taper initiated by neuro/hospitalist as Depakote not yet therapeutic. Liaison to explore therapy options. No additional recs at this time other than monitor for hypotension and oversedation. Likely titration of Effexor XR but not today.
[2021-12-28] MEDS ORDERED: SODIUM CHLORIDE 0.9% 500 ML IV ONE (13:34)
--- NOTE | 2021-12-28 13:38 | Hospitalist Progress Note ---
Date of Service December 28, 2021 Assessment & Plan (1) Seizure-like activity: Plan: Concern for seizure versus pseudoseizure Neurology consulted. multiple episodes lasting 20 to 30 seconds to a minute. Patient had an observed episode with some semirhythmic movement of the right hand and forearm, generalized clonic movement, followed by flaccidity. No tongue biting, eyes equal and reactive to light after. Did receive 1 mg of Ativan during this. Concern for pseudoseizure versus epilepsy. Patient was on gabapentin 800 mg 3 times daily, clonazepam 1 mg twice daily 7 AM/3 PM, and Lamictal 25 mg twice daily with plan to increase to 50 grams after 1 week Continue gabapentin 800 mg p.o. 3 times daily Patient did receive fosphenytoin overnight 12/26 for concern of seizure-like episode Lamictal was stopped, and patient has been loaded with Depakote continue valproic acid every 6 hours Psychotropic medications below per psych recommendations, appreciate recs Patient with no seizure episodes overnight into 12/28, but with a panic attack in the morning distressed and rocking in bed. No pseudoseizures overnight, valproic acid level 39. Continue 250mg q6h for now. (2) Depression: Plan: Concern for seizure versus pseudoseizure as above Patient reports worsening panic, chronic trauma, and PTSD Does report episodes opening depression versus days of elevated mood/bending/insomnia consistent with bipolar 2 Psychiatry consulted, concern for complex PTSD with dissociation and somatic conversion. See consultation, appreciate care Noted that nonepileptic seizure is diagnosis of exclusion, recommend continuing medical work-up which may require transfer to EMU Previously on Remeron/Effexor pending Seroquel addition prior to admission Seroquel started, venlafaxine restarted Valproic acid as noted above Gabapentin and milligrams p.o. 3 times daily Clonazepam as noted above Discussion with psychiatry patient would like to transition to a residential trauma program although these are limited. Discussed with neurology above if episodes continue we will need to transfer to EMU, if mood and seizures well controlled with above can consider transition to trauma program versus discharge home with safety plan and outpatient referral (3) Hypotension: Plan: Baseline low blood pressure in low 100s, low 100s to low 80s today Somewhat poor p.o. intake, no tachycardia, w/ medications as above Elevated creatinine BUN ratio 1X fluid bolus given 2X voids today Encourage p.o., continue to follow No signs of infection/sepsis (4) DVT prophylaxis: Plan: Lovenox (5) Complex posttraumatic stress disorder: Plan: As above (6) Bipolar disorder with depression: Plan: As above Admission and Anticipated Discharge Date Admission Date: December 25, 2021 Subjective Seen at bedside in the morning, and again in late morning reassessment. At morning visit biomed is in room fixing a monitor, patient in no acute distress and will revisit shortly for privacy. On morning revisit patient reports she had a panic attack, does answer some questions but is curled up crying reports she just feels anxious and "I am sorry of such a bother ". Reassurance provided, patient also seen by psych nurse liaison during visit who provided support to patient. Tempted to use coping strategies and deep breathing during visit, slight improvement following exercises with liaison. She did not have any seizure episodes overnight. To follow, currently undergoing valproic load Review of Systems Review of Systems: Unable to fully assess due to anxiety and patient feeling of panic attack Physical Exam Physical Exam: General: Patient curled up, crying in bed. Does answer questions appropriately HEENT: Atraumatic, normocephalic. Visual acuity and hearing grossly intact Pulm: Symmetrical chest rise. No increase in work of breathing. No respiratory distress. Cardiac: RRR, -mrg. Radial pulses intact and symmetrical. Abdominal: Nontender, nondistended, soft. BS present. Results & Data Results & Data ([facility]) Vital Signs (Past 12 Hours) Vital Signs Temp Pulse Resp BP Pulse Ox 12/28/21 07:36 36.9 C 89 17 88/46 L 97 12/28/21 03:53 36.8 C 82 16 87/46 L 96 PG Care Time/CCT Total # of Minutes Spent Total Time Spent with Patient: Total time spent is greater than 50% in coordination of care (as documented) at patient's floor/unit and/or counseling patient: Coding Level of Care Code 11860 Subseq Hosp Care Lvl 2 Diagnoses Seizure-like activity R56.9 Depression F32.A Depression Type: unspecified DVT prophylaxis Z29.9 Complex posttraumatic stress disorder F43.10 Bipolar disorder with depression F31.9 Hypotension I95.9 (1) Depression Depression Type: unspecified Qualified Code(s): F32.A - Depression, unspecified
[2021-12-28] MEDS ORDERED: OLANZapine 5 MG TABLET PO ONE (18:30)
--- NOTE | 2021-12-28 18:32 | Communication Note ---
Date of Service: December 28, 2021 Patient with a panic attack in the afternoon. Did receive 1 mg of on-call Ativan which did not help. Patient seen at bedside for reassessment. Is tachyp neic to 24, curled up, crying. Reports she feels like she is having a panic attack like she has before, which feels like she is dying from anxiety. Not lightheaded or dizzy. Does answer questions appropriately, no tremors. Blood pressure 130/89, pulse approximately 90. She reports that with similar panic attacks in the past cold ice has helped her, she has not been brought this yet today but thinks it might help. We will try grounding strategies, and try cold ice to see if this helps and is still having severe symptoms will try Zyprexa 5 mg oral. Patient agreeable to this plan. TSH normal
[2021-12-28] MEDS: MIRTAZAPINE TAB 15 MG TAB PO SCH (20:04)
[2021-12-29] MEDS: VALPROATE SOD 250 MG in DEXTROSE 5% 50 ML IV SCH ×2 (05:45→11:45)
[2021-12-29] MEDS: LORazepam 2 MG/1 ML VIAL IV PRN ×3 (05:51→19:03)
[2021-12-29 06:13] LABS: BUN Creatinine Ratio 34.5 (10-20); Calcium 9.1 mg/dl (8.5-10.1); Creatinine Clr Calc Pharmacy 133.7 ml/min; Est GFR (African American) 143.4 ml/min; Est GFR (Non-African American) 123.7 ml/min; Potassium 4.2 mmol/L (3.5-5.1)
[2021-12-29 06:21] LABS: Hematocrit (blood only) 36.5 % (37-47); Hemoglobin 12.2 g/dL (12.0-16.0); Mean Corpuscular Hgb Conc 33.4 g/dL (32-36); Mean Corpuscular Volume 92.9 fL (80-100); Platelet Count 289 K/uL (130-400); RDW Coefficient of Variation 12.2 % (11.5-14.5); RDW Standard Deviation 41.7 fL (36.4-46.3); Red Blood Count 3.93 M/uL (4.2-5.4)
[2021-12-29] MEDS: GABAPENTIN 800 MG TAB PO SCH ×3 (08:44→19:58)
[2021-12-29] MEDS: clonazePAM 1 MG TAB PO SCH ×2 (08:44→15:41)
--- NOTE | 2021-12-29 09:28 | Neurology Progress Note ---
Date of Service December 29, 2021 Assessment & Plan (1) Seizure-like activity: (2) Bipolar disorder with depression: (3) Panic disorder: Plan: This patient has a longstanding history of bipolar disorder and other issues (including panic disorder, depression, significant PTSD, OCD, and agoraphobia). Panic attacks have been essentially daily over the last 2 months. She had the recent onset of seizure-like activity December 25, having never had this type of activity before. She has had several episodes on December 25 during the day and in the evening several the morning of December 26 as well as in the afternoon and in the evening. She had 2 prolonged episodes December 27 of multiple serial events, with 8 or 9 in a row in the morning again in the early afternoon. I witnessed 2 episodes that day and described them in the addendum of my note of December 27. They were very consistent with pseudoseizures These seizure-like generalized clonic episodes always follow the onset of a panic attack. I witnessed no tonic activity. Her eyes were closed and she had typical head rocking. Her legs were not in sync with her arms. she really has no significant postictal state following that many events. This is even including after getting Ativan. Overall, I am strongly suspecting pseudoseizures, but I cannot completely exclude real generalized seizures. EEG, in between spells, was unremarkable december 26, including no postictal or other slowing. Neurologic examination is normal with no focal neurologic signs, meningeal signs, or encephalopathy. Dr. cruz formally evaluated the patient December 27. She initiated Seroquel and venlafaxine. Patient has been loaded with valproic acid, 1 gram on December 27, and now is getting 250 milligrams every 6 hours. She has had no seizure-like activity since initiating valproic acid. Recommendations: 1. Keep off levetiracetam , lamotrigine, and phosphenytoin. 2. Continue gabapentin 800 milligrams 3 times a day. Continue clonazepam BID, with 1 milligram in the morning (7-8), and 1 milligram in the afternoon (3-4) 3. Psychiatry to handle medication for panic attacks and mood. 4. Change valproic acid to Depakote 500 milligrams ER 24 hour release, 1 tablet twice a day. check a trough level next week. 5. we may need to send her to an epilepsy monitoring unit if we cannot prove seizures versus pseudoseizures. 6. overall, I have no further specific neurologic recommendations and would be happy to follow her up as an outpatient in 2-3 weeks with 1 of the Neurology PAs. Overall, I spent a total of 45 minutes with this case including review of records, direct evaluation the patient at bedside, and discussion of the case with the patient at bedside, RN at bedside , Dr. Cruz, and , including differential diagnosis and treatment options. Admission and Anticipated Discharge Date Admission Date: December 25, 2021 Subjective The patient has had no further seizure-like activity following her panic attacks since we initiated Depakote. She has had frequent panic attacks, requiring Ativan. she is being followed closely by Psychiatry. Depakote level this morning was 25. She has no pain or new problems currently. Results & Data ([facility]) Vital Signs (Past 12 Hours) Vital Signs Temp Pulse Pulse Resp BP BP Pulse Ox 12/29/21 08:16 36.7 C 91 H 18 101/55 L 99 12/29/21 05:04 36.7 C 72 18 88/54 L 98 12/29/21 00:27 36.6 C 79 18 91/56 L 97 12/28/21 23:00 78 Exam (Neuro) Physical Exam: Patient is awake and alert. Speech is without aphasia or dysarthria. Mood is down and she is tearful. Affect is appropriate. Thought processes are intact conversation. Extraocular muscles are intact without nystagmus. There is no facial droop. Tongue is midline. Limbs have symmetrical movement and strength and have no abnormal involuntary movements. PG Care Time/CCT Total # of Minutes Spent Total Time Spent with Patient: Total time spent is greater than 50% in coordination of care (as documented) at patient's floor/unit and/or counseling patient: Coding Level of Care Code 10376 Subseq Hosp Care Lvl 3 Diagnoses Seizure-like activity R56.9 Bipolar disorder with depression F31.9 Panic disorder F41.0 Time Spent (min) 45
--- NOTE | 2021-12-29 13:39 | Hospitalist Progress Note ---
Date of Service December 29, 2021 Assessment & Plan (1) Seizure-like activity: Plan: Concern for seizure versus pseudoseizure Neurology consulted. multiple episodes lasting 20 to 30 seconds to a minute. Patient had an observed episode with some semirhythmic movement of the right hand and forearm, generalized clonic movement, followed by flaccidity. No tongue biting, eyes equal and reactive to light after. Did receive 1 mg of Ativan during this. Concern for pseudoseizure versus epilepsy. Patient was on gabapentin 800 mg 3 times daily, clonazepam 1 mg twice daily 7 AM/3 PM, and Lamictal 25 mg twice daily with plan to increase to 50 grams after 1 week Continue gabapentin 800 mg p.o. 3 times daily Patient did receive fosphenytoin overnight 12/26 for concern of seizure-like episode Lamictal was stopped, and patient has been loaded with Depakote continue valproic acid every 6 hours Psychotropic medications below per psych recommendations, appreciate recs Patient with no seizure episodes overnight into 12/28, but with a panic attack in the morning distressed and rocking in bed. No pseudoseizures overnight, valproic acid level 39. No seizure episodes overnight into 12/29. Convert IV valproic to Depakote extended release 500 twice daily. Defer dose increase at this time, will have follow-up in neurology with repeat levels in 1 to 2 weeks. (2) Depression: Plan: Concern for seizure versus pseudoseizure as above Patient reports worsening panic, chronic trauma, and PTSD Does report episodes opening depression versus days of elevated mood/bending/insomnia consistent with bipolar 2 Psychiatry consulted, concern for complex PTSD with dissociation and somatic conversion. See consultation, appreciate care Noted that nonepileptic seizure is diagnosis of exclusion, recommend continuing medical work-up which may require transfer to EMU Previously on Remeron/Effexor pending Seroquel addition prior to admission Seroquel started, venlafaxine restarted Valproic acid as noted above Gabapentin 800 mg p.o. 3 times daily Clonazepam as noted above Discussion with psychiatry patient would like to transition to a residential trauma program although these are limited. Plan is discharged to the [facility] at this time. Patient is distressed and upset that her bed was not held and is not able to be transferred today, but possibly tomorrow, but is agreeable to this. Expresses frustration feeling like her hospitalization was a setback when she was making good progress at the [facility]. Support provided. Patient runs a low blood pressure at baseline, some hypotension likely worsened by medications. Hold parameters placed on Seroquel. Creatinine function adequate, does not appear volume depleted today. No visional acute intervention for this at this time. Medically appropriate for discharge today, pending bed availability at the [facility]. No bed available today, thinks 1 will be available tomorrow per case management. (3) Hypotension: Plan: Baseline low blood pressure in low 100s, low 100s to low 80s today Likely slightly worsened by medications, hold parameters placed on Seroquel as above Improved pressures today No additional intervention for this at this time, appears euvolemic (4) DVT prophylaxis: Plan: Lovenox (5) Complex posttraumatic stress disorder: Plan: As above (6) Bipolar disorder with depression: Plan: As above Admission and Anticipated Discharge Date Admission Date: December 25, 2021 Subjective Patient is seen at bedside this morning. Patient feels very anxious, is not in an acute panic attack. Is intermittently tearful during exam. Has had no seizure episodes overnight. Reports she still feels anxious and depressed, and feels like her hospitalization has been a setback to progress she was making at the [facility]. Is anxious to return to the [facility]. Blood pressure is improved today with hold parameters on medications, does run somewhat low at baseline has had no symptoms of hypotension. Patient is somewhat distressed that a bed at the [facility] is not available for her today and worries that her stuff has been moved and that she lost her bed when she thought it was about hold. Expresses distress at this and that she may want to just go home instead. Reports that there is no one at home with her, and does not have a plan for medication management or self-care if she were to treat return home alone. Support of andres, and discussed that [facility] will likely be able to take her tomorrow. Patient is disappointed, but agreeable to this Review of Systems Review of Systems: All systems reviewed & are unremarkable except as noted in Subjective Physical Exam Physical Exam: General: Thin awakens easily, follows commands. Appears anxious, intermittently tearful. Thought process linear. HEENT: Atraumatic, normocephalic. Vision and hearing grossly intact. Pulm: Symmetrical chest rise. No increase in work of breathing. No respiratory distress. Cardiac: Lightly tachycardic, regular by radial palpation. Results & Data Results & Data ([facility]) Vital Signs (Past 12 Hours) Vital Signs Temp Pulse Pulse Resp BP Pulse Ox 12/29/21 08:16 36.7 C 91 H 18 101/55 L 99 12/29/21 08:00 67 12/29/21 05:04 36.7 C 72 18 88/54 L 98 PG Care Time/CCT Total # of Minutes Spent Total Time Spent with Patient: Total time spent is greater than 50% in coordination of care (as documented) at patient's floor/unit and/or counseling patient: Coding Level of Care Code 93799 Subseq Hosp Care Lvl 2 Diagnoses Seizure-like activity R56.9 Depression F32.A Depression Type: unspecified Hypotension I95.9 DVT prophylaxis Z29.9 Complex posttraumatic stress disorder F43.10 Bipolar disorder with depression F31.9 (1) Depression Depression Type: unspecified Qualified Code(s): F32.A - Depression, unspecif ied
--- NOTE | 2021-12-29 14:17 | Psychiatric Progress Note ---
Date of Service December 29, 2021 Impression / Recommendations Impression 31 yo female with very complex constellation of symptoms, worsening panic into her treatment during inpatient hospitalization likely as beginning to process her chronic trauma history. She meets criteria for multiple psychiatric diagnosis but most of her symptoms can be attributed to mood disorder and chronic PTSD of which dissociation and somatic conversion have culminated in current presentation of likely pseudoseizures. 12/29/2021: somatic symptoms (likely non-epileptic sz) improved but panic severe yesterday, more depressed today (1) Bipolar disorder with depression: (2) Complex posttraumatic stress disorder: Effexor XR restart and Seroquel standing order held. Has Ativan and Seroquel prn for anxiety, declines additional Zyprexa prn. Continue Remeron. 1-on- pending transfer back to [facility]. patient should not be allowed to leave the hospital AMA Risk Factors Assessment Do You Have Access To A Gun?: No Interval History Identifying Information Jen is a 31-year-old female from [facility] who was transferred to [facility] ED on 12/25/21 after several panic attacks and seizure like activity at the [facility]. Chief Complaint "I don't want anything, I can't believe I have to wait". Review of Systems Notes complains food is repetitive, poor sleep Subjective Subjective Patient was seen & assessed and interval progress reviewed with nursing, Dr. Garcia, and Dr. Casanova. Patient did not have any more seizure activity since loaded on Depakote. She is being switched to oral. BP is improved. Yesterday was not orthostatic or symptomatic, BP was lower likely due to Seroquel. Standing dose has been discontinued. She is refusing any additional medication changes until on a psychiatric unit. Anticipated bed at [facility] tomorrow. She remains quite depressed, mother at bedside, resting after prn Ativan. Physical Exam Psychiatric Orientation: alert Apperance: + disheveled Eye Contact: + poor eye contact Motor Behavior: no abnormal motor movements Speech: + abnormal rate/rhythm/volume of speech (non spontaneous) Affect: + depressed affect Mood: + depressed mood Thought Process: goal directed thought process Thought Content: reality based without delusions Suicidal Thoughts: denies suicidal plan (in hospital); + reports suicidal thoughts (hopeless, "can't do anything here") Homicidal Thoughts: denies homicidal thoughts Hallucinations: no auditory hallucinations and no visual hallucinations Cognition: attention grossly intact and language grossly intact Vital Signs (Past 24 Hours) Last Vital Signs Temp 36.7 C 12/29/21 08:16 Pulse 91 H 12/29/21 08:16 Resp 18 12/29/21 08:16 BP 101/55 L 12/29/21 08:16 Pulse Ox 99 12/29/21 08:16 Results & Data ([facility]) Laboratory Results Laboratory Results - last 24 hr 12/29/21 12/29/21 12/29/21 05:29 05:29 05:29 WBC 7.00 RBC 3.93 L Hgb 12.2 Hct 36.5 L MCV 92.9 MCH 31.0 MCHC 33.4 RDW Std Deviation 41.7 RDW Coeff of Georges 12.2 Plt Count 289 MPV 9.0 Sodium 138 Potassium 4.2 Chloride 106 Carbon Dioxide 27 Anion Gap 5 BUN 20 Creatinine 0.58 L Est Cr Clr Drug Dosing 133.7 Est GFR ( Amer) 143.4 Est GFR (Non-Af Amer) 123.7 BUN/Creatinine Ratio 34.5 H Glucose 83 Calcium 9.1 Random Cortisol Valproic Acid 25 L 12/29/21 08:53 WBC RBC Hgb Hct MCV MCH MCHC RDW Std Deviation RDW Coeff of Georges Plt Count MPV Sodium Potassium Chloride Carbon Dioxide Anion Gap BUN Creatinine Est Cr Clr Drug Dosing Est GFR ( Amer) Est GFR (Non-Af Amer) BUN/Creatinine Ratio Glucose Calcium Random Cortisol 15.06 Valproic Acid Current Inpatient Medications Current Inpatient Medications: Current Inpatient Medications Acetaminophen (Acetaminophen 325 Mg Tab) 650 mg PO Q4H PRN PRN Reason: Pain or Fever Stop: 01/24/22 18:56 Last Admin: 12/26/21 19:29 Dose: 650 mg Documented by: Al Hydrox/Mg Hydrox/Simethicone (Aluminum/Magnesium Susp 30 Ml Udc) 15 ml PO Q4H PRN PRN Reason: Dyspepsia Stop: 01/24/22 18:56 Clonazepam (Clonazepam 1 Mg Tab) 1 mg PO QAM [facility] Stop: 01/27/22 08:59 Last Admin: 12/29/21 08:44 Dose: 1 mg Documented by: Clonazepam (Clonazepam 1 Mg Tab) 1 mg PO QD@16 [facility] Stop: 01/26/22 15:59 Last Admin: 12/28/21 16:34 Dose: 1 mg Documented by: Divalproex Sodium (Divalproex Extended Release 500 Mg Tab) 500 mg PO BID [facility] Stop: 01/28/22 20:59 Gabapentin (Gabapentin 800 Mg Tab) 800 mg PO TID [facility] Stop: 01/24/22 20:59 Last Admin: 12/29/21 13:45 Dose: 800 mg Documented by: Valproic Acid 250 mg/ Dextrose 52.5 mls @ 55 mls/hr IV Q6 [facility]ICIA Stop: 12/29/21 17:00 Last Infusion: 12/29/21 13:39 Dose: Infused Documented by: Lorazepam (Lorazepam 2 Mg/1 Ml Vial) 1 mg IV Q6H PRN PRN Reason: Agitation Stop: 01/24/22 18:56 Last Admin: 12/29/21 11:59 Dose: 1 mg Documented by: Lorazepam (Lorazepam 2 Mg/1 Ml Vial) 2 mg IV Q2H PRN PRN Reason: seizure Stop: 01/24/22 18:56 Last Admin: 12/27/21 13:01 Dose: 2 mg Documented by: Melatonin (Melatonin 3 Mg Tab) 9 mg PO HS PRN PRN Reason: Insomnia Stop: 01/24/22 18:56 Mirtazapine (Mirtazapine Tab 15 Mg Tab) 15 mg PO HS [facility] Stop: 01/26/22 20:59 Last Admin: 12/28/21 20:04 Dose: 15 mg Documented by: Ondansetron HCl (Ondansetron Inj 2 Mg/Ml 2 Ml Vial) 4 mg IV Q6H PRN PRN Reason: Nausea Stop: 01/24/22 18:56 Quetiapine Fumarate (Quetiapine Fumarate 25 Mg Tablet) 25 mg PO TIDM [facility] Stop: 01/26/22 16:59 Last Admin: 12/28/21 16:34 Dose: 25 mg Documented by: Quetiapine Fumarate (Quetiapine Fumarate 25 Mg Tablet) 25 mg PO Q6 PRN PRN Reason: Anxiety/Agitation Stop: 01/26/22 17:59 Venlafaxine HCl (Venlafaxine Hcl Xr 75 Mg Capxr) 75 mg PO QAM [facility] Stop: 01/27/22 08:59 Last Admin: 12/28/21 08:13 Dose: 75 mg Documented by:
[2021-12-29] MEDS: DIVALPROEX EXTENDED RELEASE 500 MG TAB PO SCH (19:58)
[2021-12-29] MEDS: MIRTAZAPINE TAB 15 MG TAB PO SCH (19:58)
[2021-12-30] MEDS: LORazepam 2 MG/1 ML VIAL IV PRN ×2 (04:14→10:42)
[2021-12-30] MEDS: clonazePAM 1 MG TAB PO SCH (07:59)
[2021-12-30] MEDS: GABAPENTIN 800 MG TAB PO SCH (07:59)
[2021-12-30] MEDS: DIVALPROEX EXTENDED RELEASE 500 MG TAB PO SCH (07:59)
--- NOTE | 2021-12-30 10:49 | Discharge Summary ---
Date of Service December 30, 2021 Admission HPI Per Admitting Provider 31-year-old female who presents from the [facility] where she is therefore a suicide gesture who presents with concern for generalized seizure. Reportedly the patient had emotional escalation at the [facility] when one of her friends had left. She reportedly had an episode of seizure-like activity there, an episode of seizure-like activity in EMS on route here. She had additional episode of generalized tonic-clonic movements here all which only lasted 30 seconds each or so. Mother is at the bedside reportedly has no history of seizure disorder. In the emergency department she was given lorazepam 2 and 1500 mg of Keppra. Urine tox is pending urine analysis is pending chest x-ray head CT and EKG are unremarkable Reportedly the patient is on gabapentin 600 4 times daily and clonazepam 1 mg twice daily while at the [facility]. She is here for suicidal ideation but she did not have a suicidal gesture and she is here voluntarily on 201. Reportedly she had a bad day 1 day prior where increased panic attacks were occurring she had poor sleep overnight and then had an increasingly escalating emotional episode which led in lend itself to her having this event. She cannot recall the events she did not have any bruises with exception of a contusion to her forehead she not lose continence does state that her arms and legs feel weak from exertion Principal Diagnosis Seizure activity, most likely nonepileptiform seizure Discharge Exam General: Thin awakens easily, follows commands. Appears anxious, not tearful or curled up this morning thought process linear. HEENT: Atraumatic, normocephalic. Vision and hearing grossly intact. Pulm: Symmetrical chest rise. No increase in work of breathing. No respiratory distress. Cardiac: RRR by radial palpation. Discharge Data Allergies Allergy/AdvReac Type Severity Reaction Status Date / Time azithromycin Allergy Mild hives,vomit Verified 12/26/21 10:51 ing Consultations 12/25/21 15:38 ED Decision to Admit Stat 12/25/21 18:57 Consult Neurology Routine 12/25/21 23:33 Consult Behavioral Health Liaison Routine 12/26/21 21:56 Consult Psychiatry Routine Ordered Studies 12/25/21 12:32 CT head/brain wo con Stat 12/26/21 11:53 MRI Brain [MR brain seizure wo con] Routine Hospital Course (1) Seizure-like activity: 31-year-old female with a history of complex PTSD, bipolar with depression, panic disorder who presented with concerns for seizure. MRI, CT without acute findings. EEG between episodes with no slowing or epileptiform findings. While seizure cannot be definitively ruled out without continuous monitoring, presentation consistent with nonepileptiform seizures. Did improve following valproic acid initiation. Has been discharged back to the [facility] for further medication adjustments and care. At discharge was continued on Seroquel 25 mg p.o. every 6 hours for anxiety with hold parameters for hypotension, divalproex ER 500mg BID, and clonazepam 1 mg in the morning and 1 mg at 1600. Concern for seizure versus pseudoseizure Neurology consulted. multiple episodes lasting 20 to 30 seconds to a minute. Patient had an observed episode with some semirhythmic movement of the right hand and forearm, generalized clonic movement, followed by flaccidity. No tongue biting, eyes equal and reactive to light after. Did receive 1 mg of Ativan during this. Concern for pseudoseizure versus epilepsy. Patient was on gabapentin 800 mg 3 times daily, clonazepam 1 mg twice daily 7 AM/3 PM, and Lamictal 25 mg twice daily with plan to increase to 50 grams after 1 week Continue gabapentin 800 mg p.o. 3 times daily Patient did receive fosphenytoin overnight 12/26 for concern of seizure-like episode Lamictal was stopped, and patient has been loaded with Depakote continue valproic acid every 6 hours Psychotropic medications below per psych recommendations, appreciate recs Patient with no seizure episodes overnight into 12/28, but with a panic attack in the morning distressed and rocking in bed. No pseudoseizures overnight, valproic acid level 39. No seizure episodes overnight into 12/29. Convert IV valproic to Depakote extended release 500 twice daily. Defer dose increase at this time, will have follow-up in neurology with repeat levels in 1 to 2 weeks. Discharged to the [facility] for further care and medication adjustment. Vital medications as noted in summary above to be adjusted further by medicine by [facility]. (2) Depression: Concern for seizure versus pseudoseizure as above Patient reports worsening panic, chronic trauma, and PTSD Does report episodes opening depression versus days of elevated mood/bending/insomnia consistent with bipolar 2 Psychiatry consulted, concern for complex PTSD with dissociation and somatic conversion. See consultation, appreciate care Noted that nonepileptic seizure is diagnosis of exclusion, recommend continuing medical work-up Previously on Remeron/Effexor pending Seroquel addition prior to admission Seroquel started, venlafaxine restarted Valproic acid as noted above Gabapentin 800 mg p.o. 3 times daily Clonazepam as noted above Discussion with psychiatry patient would like to transition to a residential trauma program although these are limited. Patient runs a low blood pressure at baseline, some hypotension likely worsened by medications. Hold parameters placed on Seroquel. Pressure did improve to normal baseline with this change. (3) Hypotension: Baseline low blood pressure in low 100s, low 100s to low 80s today Likely slightly worsened by medications, hold parameters placed on Seroquel as above Improved pressures today No additional intervention for this at this time, appears euvolemic (4) DVT prophylaxis: Lovenox (5) Complex posttraumatic stress disorder: As above (6) Bipolar disorder with depression: As above Total Time Total Time Spent Total Time Spent (In Minutes): Time spend day of discharge 35 minutes including direct patient care, documentation, review of labs and images, and coordination of care. Discharge Plan Discharge Items Patient Disposition: Personal Skilled Nursing Reason For Visit: POSSIBLE SEIZURE, SUISCIDE Discharge Diagnosis: Possible seizure, suspected pseudoseizure Activity: Per Instructions section Non-emergency contact: Primary Care Provider and Neurologist Call non-emergency contact if: you have any medication questions, your symptoms worsen, your pain is not controlled, your pain is worsening and your pain is unusual for you Follow-up/Referrals: Dionisio Garcia MD [Physician] - Julisa Rubio [Primary Care Provider] - Diet: Regular Addtl Attending Provider Instructions: You are seen in the hospital for concern of seizures. Your head CAT scan and brain MRI did not show any acute abnormalities. EEG did not show any postictal or other slowing or abnormalities between spells. Neurologic examination was normal with no focal signs during admission. You did have 2 episodes which were observed by neurology, these were concerning for nonepileptiform seizures although without continuous EEG monitoring seizure cannot be definitively be ruled out. You have been started on an antiseizure and mood medicine, develop relaxants as noted below. If medication changes made as below with additional changes to be made by the medicine. You have been discharged on antiseizure and mood medication, Divalproex. Please take Divalproex 500 mg extended release by mouth twice daily. This may need adjustment based on your blood levels, no adjustment is recommended at this time and you will have follow-up with neurology as below who may make recommendations for adjustment of this medication. At time of discharge you have been started on Seroquel 25 mg every 6 hours as needed for anxiety. You have been continued on clonazepam 1 mg p.o. a.m., 1 mg p.o. at 1600 for anxiety and panic attacks. You have been continued on gabapentin 800 mg by mouth 3 times daily, the [facility] had you on 600 mg 4 times daily which is also okay. They may recommend medication adjustments on your return You should have a follow-up appointment with the [facility] provider upon returning to their facility. You should have a follow-up appointment with neurology within 2 weeks. This is being scheduled for you. If you do not receive a call to confirm this appointment within 48 hours, please have the [facility]ami[facility] contact Dr. Garcia's office at the number above. If you develop any new or worsening symptoms including fever, chills, sweats, chest pain, chest pressure, difficulty breathing, uncontrolled nausea/vomiting, rash, wheezing, passing out or nearly passing out, bleeding, black/bloody bowel movements, or other new or concerning symptoms please call your primary care physician, or call 911 for re-evaluation in the emergency department if you are very concerned. Pending Studies at Discharge: No Stand-Alone Forms: My [employer], Smoking Cessation Skilled Items Patient informed of condition?: Yes DNR: No Discharge Level of Care: Other Communicable Disease: No Discharge Prognosis: Stable Lines: None Urinary Catheter: No Medications and DC Order Prescriptions: New quetiapine 25 mg Tablet 25 mg PO Q6 PRN (Reason: anxiety) Qty: 30 RF: 0 clonazepam 1 mg Tablet 1 mg PO QAM Qty: 7 RF: 0 clonazepam 1 mg Tablet 1 mg PO QD@16 Qty: 7 RF: 0 gabapentin 800 mg Tablet 800 mg PO TID 30 Days Qty: 90 RF: 0 divalproex 500 mg Tablet Extended Release 24 Hr 500 mg PO BID 30 Days Qty: 60 RF: 0 Continued Albuterol Inhaler (VENTOLIN INHALER) AEROSOL,SOLN 2 puff Inhalation QID PRN (Reason: SOB/Wheezing) Qty: 5 RF: 0 Control Pills tablet 1 tab PO DAILY Qty: 0 RF: 0 DULOXETINE HCL (CYMBALTA) 60 MG capsule 60 mg PO DAILY Qty: 0 RF: 0 NAPROXEN 1 tab PO UD PRN (Reason: MENSTRAL CRAMPS) Qty: 0 RF: 0 ZOLPIDEM TARTRATE (AMBIEN) 5 MG tablet 5 mg PO HS PRN (Reason: Sleep) Qty: 0 RF: 0 lorazepam 2 mg/mL Solution 2 mg SUBLINGUAL UD PRN (Reason: Seizures) RF: 0 melatonin 3 mg Tablet 9 mg PO HS PRN (Reason: Insomnia) RF: 0 MAG-AL 200-200 mg/5 mL Suspension 30 ml PO Q4H PRN (Reason: Indigestion) RF: 0 acetaminophen 325 mg Capsule 975 mg PO Q6H PRN (Reason: Pain) RF: 0 magnesium hydroxide [Milk Of Magnesia Concentrated] 2,400 mg/10 mL Suspension 30 ml PO UD PRN (Reason: Constipation) RF: 0 Admission Data Admit Date/Time: 12/25/21 15:22 Attending Provider: Florian Spencer Admit Provider: Marcell Agosto Primary Care Provider: Julisa Rubio Other Providers: Marcell Agosto ; Dionisio Garcia Erica K. ; Rachelle Cruz ; Tianna Leyva Coding Level of Care Code D/C DAY MANAGEMENT >30 MINS Diagnoses Seizure-like activity R56.9 Depression F32.A Depression Type: unspecified Hypotension I95.9 DVT prophylaxis Z29.9 Complex posttraumatic stress disorder F43.10 Bipolar disorder with depression F31.9
== END 2021-12-30 11:27 | DRG 101 ==
LOC: EDBD → ED 12:24 → SUATTDRO 15:22 → 2E 15:22 → MERGE 15:22 → 2E 17:36 → 2W 12-26 20:52 → 2E 12-26 22:00